=== PATIENT | male | born 1985 | race Two or more races ===

== ENCOUNTER 2019-08-26 00:52 | Inpatient (IN) | payer MEDICAID ==
[~2019-08-26] VITALS: Ht 190.5 cm; Wt 91.6 kg
[2019-08-26 01:34] LABS: HEMATOCRIT. 34.3 % (42.0-52.0); HEMOGLOBIN. 11.2 g/dL (14.0-18.0); LYMPHOCYTES % 11.9 % (20.0-50.0); MEAN CORPUSCULAR HEMOGLOBIN 24.2 pg (28.0-32.0); NEUTROPHILS % 82.3 % (40.0-76.0); RED BLOOD CELL COUNT 4.64 mill/uL (4.7-6.1)
[2019-08-26 01:36] LABS: CLARITY URINE CLEAR (CLEAR); COLOR URINE YELLOW (YELLOW); KETONES URINE 2+ (NEGATIVE); LEUKOCYTE ESTERASE URINE 1+ (NEGATIVE); NITRITE URINE NEGATIVE (NEGATIVE); OCCULT BLOOD URINE NEGATIVE (NEGATIVE); PH URINE 6.5 (4.5-8.0); PROTEIN URINE NEGATIVE (NEGATIVE); UROBILINOGEN URINE 0.2 E.U./dL (0.2-1.0)
[2019-08-26 01:40] LABS: INR 1.2; PROTHROMBIN TIME 11.8 sec (9.6-11.0)
[2019-08-26 01:53] LABS: PLATELET 197 x1000/uL (130-400)
[2019-08-26 01:54] LABS: BASOPHILS % 0.4 % (0.0-2.0); CHLORIDE 104 mEq/L (98-107); EOSINOPHILS % 0.4 % (0.0-5.0); MEAN PLATELET VOLUME 9.5 fl (7.4-10.4)
[2019-08-26] MEDS ORDERED: FAMOTIDINE 20MG/2ML VIAL IV STA (02:03)
[2019-08-26] MEDS ORDERED: SODIUM CHLORIDE 0.9% 1,000 ML IV ONE (02:03)
[2019-08-26] MEDS ORDERED: ONDANSETRON HCL 4MG/2ML INJ IV ONE (02:15)
[2019-08-26] MEDS ORDERED: KETOROLAC 30MG/ML VIAL IV STA ×2 (02:23→05:50)
[2019-08-26] MEDS ORDERED: GUAIFENESIN 200MG/10ML SUGAR FREE UDC PO PRN (08:30)
[2019-08-26] MEDS ORDERED: CLONIDINE 0.1MG TABLET PO PRN (08:30)
[2019-08-26] MEDS ORDERED: MAGNESIUM/ALUMINUM HYDROXIDE/SIMETHICONE 30ML UDC PO PRN (08:30)
[2019-08-26] MEDS ORDERED: NITROGLYCERIN 0.4MG TABLET SL SL PRN (08:30)
[2019-08-26] MEDS ORDERED: IPRATROPIUM/ALBUTEROL 0.5-3(2.5)MG/3ML NEB NEB PRN (08:30)
[2019-08-26] MEDS ORDERED: DOCUSATE SODIUM 100MG CAPSULE PO PRN (08:30)
[2019-08-26] MEDS: KETOROLAC 15MG/ML VIAL IV PRN ×2 (09:12→21:41)
[2019-08-26] MEDS: FAMOTIDINE 20MG TABLET PO SCH ×2 (09:12→21:08)
[2019-08-26] MEDS: SODIUM CHLORIDE 0.9% 1,000 ML IV SCH ×3 (09:12→21:08)
[2019-08-26 09:30] VITALS: BP 118/78
[2019-08-26 10:22] LABS: AMYLASE 285 IU/L (25-115)
[2019-08-26] MEDS: ONDANSETRON HCL 4MG/2ML INJ IV PRN ×2 (12:03→21:41)
[2019-08-26] MEDS ORDERED: POTASSIUM CHLORIDE 20MEQ/PACKET PO NR (13:30)
[2019-08-26] MEDS: LORAZEPAM 0.5MG TABLET PO PRN (13:50)
[2019-08-26 20:00] VITALS: BP 122/81
[2019-08-26] MEDS: ZOLPIDEM TARTRATE 5MG TABLET PO PRN (21:42)
[2019-08-27] VITALS: BP 112/78
[2019-08-27] MEDS: ONDANSETRON HCL 4MG/2ML INJ IV PRN ×4 (02:06→22:42)
[2019-08-27] MEDS: LORAZEPAM 0.5MG TABLET PO PRN ×2 (02:06→08:19)
[2019-08-27 04:00] VITALS: BP 109/68
[2019-08-27] MEDS: KETOROLAC 15MG/ML VIAL IV PRN ×5 (04:01→22:24)
[2019-08-27] MEDS: SODIUM CHLORIDE 0.9% 1,000 ML IV SCH ×3 (04:30→16:38)
[2019-08-27 06:12] LABS: CHLORIDE 110 mEq/L (98-107)
[2019-08-27 06:21] LABS: AMYLASE 289 IU/L (25-115)
[2019-08-27 08:00] VITALS: BP 110/61
[2019-08-27 08:07] LABS: *AMPHETAMINES SCREEN URINE NEGATIVE (NEGATIVE); *BARBITURATES SCREEN URINE NEGATIVE (NEGATIVE); *BENZODIAZEPINES SCREEN URINE NEGATIVE (NEGATIVE); *COCAINE SCREEN URINE PRESUMTIVE POSITIVE (NEGATIVE); METHADONE URINE SCREEN NEGATIVE (NEGATIVE); OPIATES URINE SCREEN NEGATIVE (NEGATIVE)
[2019-08-27 08:08] LABS: CANNABINOID URINE SCREEN PRESUMTIVE POSITIVE (NEGATIVE); PHENCYCLIDINE URINE SCREEN NEGATIVE (NEGATIVE)
[2019-08-27] MEDS: FAMOTIDINE 20MG TABLET PO SCH ×2 (08:19→20:31)
[2019-08-27] MEDS: ACETAMINOPHEN 325MG TABLET PO PRN ×3 (09:08→17:10)
[2019-08-27 12:00] VITALS: BP 115/73
[2019-08-27 16:00] VITALS: BP 112/86
[2019-08-27 20:00] VITALS: BP 122/85
[2019-08-27] MEDS: ZOLPIDEM TARTRATE 5MG TABLET PO PRN (22:22)
[2019-08-28] VITALS: BP 105/70
[2019-08-28 04:00] VITALS: BP 125/78
[2019-08-28] MEDS: KETOROLAC 15MG/ML VIAL IV PRN (04:39)
[2019-08-28] MEDS: LORAZEPAM 0.5MG TABLET PO PRN (06:55)
[2019-08-28] MEDS: ONDANSETRON HCL 4MG/2ML INJ IV PRN (06:55)
[2019-08-28 07:33] LABS: CHLORIDE 109 mEq/L (98-107)
[2019-08-28 07:51] LABS: AMYLASE 174 IU/L (25-115)
[2019-08-28 08:00] VITALS: BP 128/87
[2019-08-28] MEDS: SODIUM CHLORIDE 0.9% 1,000 ML IV SCH (08:15)
[2019-08-28] MEDS: FAMOTIDINE 20MG TABLET PO SCH (08:16)
[2019-08-28 11:58] VITALS: BP 128/87
== END 2019-08-28 13:35 | disposition home or self-care (01) | DRG 282 ==
LOC: ER 00:52 → 6EST 06:55 → ENRESERV 08:01
PROVIDERS: ADMIT Internal Medicine; ATTEND Internal Medicine
DX: K85.20 Alcohol induced acute pancreatitis without necrosis or infection (principal); E87.6 Hypokalemia; F10.10 Alcohol abuse, uncomplicated; F14.10 Cocaine abuse, uncomplicated
CPT/HCPCS: 36415; 80305; 81003; 82150; 83735; 96361; 96374; 96375; 96376; 99285; J1885; J2405; J3490; J7030